=== PATIENT | female | born 1935 | race Caucasian/White ===

== ENCOUNTER 2017-04-05 16:29 | Emergency (ER) | payer MEDICARE ==
[2017-04-05 17:03] LABS: #Eosinphils 0.2 thou/uL (0.0-0.7); #Lymphocytes 0.7 thou/uL (1.20-3.40); #Monocytes 0.3 thou/uL (0.11-0.59); %Eosinophils 4.3 % (0.0-10.0); %Lymphocytes 14.4 % (21.0-51.0); %Monocytes 4.9 % (0.0-10.0); %Neutrophils 76.5 % (42.0-75.0); Mean Corpuscular HGB CONC 33.6 g/dL (32.0-36.0); Mean Corpuscular Hemoglobin 29.7 pg (27.0-31.0); Mean Corpuscular Volume 88.5 fl (81.0-99.0); Mean Platelet Volume 6.9 fL (7.4-10.4); Platelet Count 199 thou/uL (130-400); Red Blood Cell (RBC) Count 4.37 mill/uL (4.20-5.40); White Blood Cell (WBC) Count 5.2 thou/uL (4.8-10.8)
[2017-04-05 17:31] LABS: ALT (SGPT) 13 U/L (8-55); AST (SGOT) 17 U/L (5-34); Albumin 4.2 g/dL (3.4-4.8); Alkaline Phosphatase 57 U/L (40-150); Anion Gap 14 mmol/L (10-20); BUN (Urea Nitrogen) 11 mg/dL (9.8-20.1); Bilirubin, Total 0.5 mg/dL (0.2-1.2); CK (CPK) 26 U/L (29-168); Calc. Creatinine Clearance 0 mL/min (70-130); Calcium 9.5 mg/dL (7.8-10.44); Carbon Dioxide 25 mmol/L (23-31); Chloride 106 mmol/L (98-107); Estimated GFR-MDRD 62; Globulin 2.8 g/dL (2.4-3.5); Glucose 174 mg/dL (83-110); Potassium 4.2 mmol/L (3.5-5.1); Sodium 141 mmol/L (136-145)
[2017-04-05 17:36] LABS: CKMB 0.9 ng/mL (0-6.6); Troponin I Less than 0.010 ng/mL (< 0.028)
[2017-04-05 17:50] LABS: Bilirubin Negative (Negative); Blood, Urine Negative (Negative); Glucose, Urine (Dipstick) Negative (Negative); Leukocyte Negative (Negative); Nitrite Negative (Negative); Protein, Urine (Dipstick) Negative (Neg-Trace); Urobilinogen 0.2 mg/dL (0.2-1.0); pH, Urine 5.5 (5.0-9.0)
[2017-04-05 17:56] LABS: Clarity Clear (Clear); Specific Gravity, Urine 1.016 (1.002-1.036)
--- NOTE | 2017-04-05 18:04 | CT ---
CT HEAD NONCONTRAST: 04/05/17 HISTORY: Altered mental status. Dizziness. FINDINGS: There is no evidence of acute intracranial hemorrhage or infarct. The ventricles appears normal in si ze, shape and position. Mild diffuse cortical atrophy is apparent. There is calcification in the nathalia rial structures. The visualized paranasal sinuses are clear. IMPRESSION: 1. Atherosclerosis. 2. No acute intracranial abnormalities are demonstrated on noncontrast CT head. POS: SHASHA
[2017-04-05] MEDS ORDERED: Lorazepam 2 MG/ML VIAL ONE (19:14)
--- NOTE | 2017-04-05 19:17 | RAD ---
CHEST TWO VIEWS: 04/05/17 HISTORY: Dizziness. Dyspnea. COMPARISON: 12/13/16. FINDINGS: The cardiac silhouette is upper limits of normal. Pulmonary vasculature is unremarkable. Mediastinum is midline with aortic calcification. Minimal atelectasis at each lung base remains but has decreased since the previous exam. There is no lobar consolidation, pneumothorax, or pleural fluid apparent. IMPRESSION: 1. Atherosclerosis. 2. No active cardiopulmonary abnormalities are demonstrated. POS: WALLACE
--- NOTE | 2017-04-05 21:15 | MRI ---
MRI BRAIN NONCONTRAST: 04/05/17 Performed on an emergency basis at 2004 hours. HISTORY: Altered mental status. Dizziness. FINDINGS: There is no evidence of acute intracranial hemorrhage or infarct. Mild chronic ischemic small vessel disease is apparent within the periventricular white matter of each cerebral hemisphere. There is no mass effect or shift of midline structures. Increased T2 signal is present within the inferior most m astoid air cells bilaterally. IMPRESSION: No acute intracranial abnormalities are demonstrated. POS: SHASHA
--- NOTE | 2017-04-09 13:42 | EKG ---
Test Reason : Blood Pressure : / mmHG Vent. Rate : 086 BPM Atrial Rate : 086 BPM P-R Int : 156 ms QRS Dur : 080 ms QT Int : 368 ms P-R-T Axes : 035 -16 052 degrees QTc Int : 440 ms Normal sinus rhythm Inferior infarct , age undetermined Abnormal ECG Confirmed by WANDA MANE M.D. ([id number]), film editor AVEL LASSITER ([id number]) on 04/09/2017 1:41:44 PM Referred By: Confirmed By:WANDA MANE M.D.
== END 2017-04-05 21:18 | disposition home or self-care (01) ==
LOC: ERS 16:29
DX: E86.0 Dehydration (principal); E11.9 Type 2 diabetes mellitus without complications; E78.5 Hyperlipidemia, unspecified; F41.9 Anxiety disorder, unspecified; F32.9 Major depressive disorder, single episode, unspecified; I10 Essential (primary) hypertension
CPT/HCPCS: 36415; 70450; 70551; 71046; 80053; 81003; 82553; 84484; 85025; 87804; 93005; 96361; 96374; J2060

== ENCOUNTER 2018-11-28 15:10 | Outpatient (CLI) | payer MEDICARE ==
--- NOTE | 2018-11-28 15:30 | RAD ---
EXAM: Chest 2 views: HISTORY: Shortness of breath and wheezing COMPARISON: 04/05/2017 FINDINGS: There is a normal-sized cardiomediastinal silhouette. There is no evidence of consolidation, mass, or pleural effusion. Degenerative changes are seen in the spine. IMPRESSION: No evidence of acute cardiopulmonary disease
--- NOTE | 2018-11-28 16:01 | MMO ---
Bilateral MAMMO Bilat Screen [facility]. CLINICAL HISTORY: Patient is 83 years old and is seen for screening. The patient has no family history of breast cancer. The patient has no personal history of cancer. The patient has a history of right Excisional Biopsy in 1971 - benign. VIEWS: The views performed were: bilateral craniocaudal with tomosynthesis and bilateral mediolateral oblique with tomosynthesis. FILMS COMPARED: The present examination has been compared to prior imaging studies performed at [facility] on 11/04/2011, 01/01/2014, 02/12/2015 and 11/25/2016. This study has been interpreted with the assistance of computer-aided detection. MAMMOGRAM FINDINGS: There are scattered fibroglandular densities. There are stable benign appearing calcifications seen in both breasts. There are also vascular calcifications. There are no suspicious masses, suspicious calcifications, or new areas of architectural distortion. IMPRESSION: THERE IS NO MAMMOGRAPHIC EVIDENCE OF MALIGNANCY. A ROUTINE FOLLOW-UP MAMMOGRAM IN 1 YEAR IS RECOMMENDED. THE RESULTS OF THIS EXAM WERE SENT TO THE PATIENT. ACR BI-RADS Category 2 - Benign finding MAMMOGRAPHY NOTE: 1. A negative mammogram report should not delay a biopsy if a dominant of clinically suspicious mass is present. 2. Approximately 10% to 15% of breast cancers are not detected by mammography. 3. Adenosis and dense breasts may obscure an underlying neoplasm. Reported by: GABO BRODERICK MD Electonically Signed: [id number]
== END 2018-11-28 15:11 | disposition home or self-care (01) ==
LOC: BICMAMMO 15:10
PROVIDERS: ATTEND Internal Medicine
DX: Z12.31 Encounter for screening mammogram for malignant neoplasm of breast (principal); J44.9 Chronic obstructive pulmonary disease, unspecified; R06.02 Shortness of breath; Z91.89 Other specified personal risk factors, not elsewhere classified
CPT/HCPCS: 71046; 77063; 77067

== ENCOUNTER 2020-01-17 13:05 | Emergency (ER) | payer MEDICARE ==
[~2020-01-17 13:05] MED LIST: Iopamidol-370 76% 500 ML 1 ML ONE
--- NOTE | 2020-01-17 13:52 | RAD ---
Chest AP view INDICATION: History of generalized body aches, malaise, nausea vomiting and fever COMPARISON: November 28, 2018 chest radiograph FINDINGS: Lungs: Hyperexpanded but clear Cardiac silhouette: Mild cardiomegaly. There are mitral annular calcifications again seen. There are vascular consultation of the aortic arch appear Pulmonary vasculature: Normal Pleural spaces: No pleural effusion or pneumothorax is demonstrated. Upper abdomen: No abnormality seen. Osseous structures: No acute osseous abnormality. Additional findings: None. IMPRESSION: No acute cardiopulmonary abnormality.
[2020-01-17 14:18] LABS: #Lymphocytes 0.3 thou/uL (1.20-3.40); #Monocytes 0.4 thou/uL (0.11-0.59); #Neutrophils 6.1 thou/uL (1.40-6.50); %Basophils 0.1 % (0.0-1.0); %Eosinophils 0.4 % (0.0-10.0); %Lymphocytes 3.9 % (21.0-51.0); %Monocytes 5.3 % (0.0-10.0); %Neutrophils 90.3 % (42.0-75.0); Hemoglobin 9.7 g/dL (12.0-16.0); Mean Corpuscular HGB CONC 32.2 g/dL (32.0-36.0); Mean Corpuscular Hemoglobin 26.7 pg (27.0-31.0); Mean Corpuscular Volume 82.8 fL (78.0-98.0); Platelet Count 154 thou/uL (130-400); RBC Distribution Width 14.3 % (11.5-14.5); Red Blood Cell (RBC) Count 3.62 mill/uL (4.20-5.40); White Blood Cell (WBC) Count 6.8 thou/uL (4.8-10.8)
[2020-01-17 14:43] LABS: ALT (SGPT) 16 U/L (8-55); AST (SGOT) 15 U/L (5-34); Albumin 3.5 g/dL (3.4-4.8); Alkaline Phosphatase 55 U/L (40-110); Anion Gap 15 mmol/L (10-20); BUN (Urea Nitrogen) 12 mg/dL (9.8-20.1); Bilirubin, Total 0.5 mg/dL (0.2-1.2); CK (CPK) 18 U/L (29-168); Calc. Creatinine Clearance 0 mL/min (70-130); Calcium 7.9 mg/dL (7.8-10.44); Carbon Dioxide 24 mmol/L (23-31); Chloride 106 mmol/L (98-107); Globulin 2.4 g/dL (2.4-3.5); Glucose 162 mg/dL (83-110); Lipase 43 U/L (8-78); Potassium 3.6 mmol/L (3.5-5.1); Protein, Total 5.9 g/dL (6.0-8.3); Sodium 141 mmol/L (136-145)
[2020-01-17 14:56] LABS: Bilirubin Negative (Negative); Blood, Urine Negative (Negative); Clarity Clear (Clear); Glucose, Urine (Dipstick) Normal (Negative); Ketone, Urine Negative (Negative); Leukocyte Negative Leu/uL (Negative); Nitrite Negative (Negative); Protein, Urine (Dipstick) Negative (Neg-Trace); Specific Gravity, Urine 1.021 (1.002-1.036); Urobilinogen Normal mg/dL (Less than 2); pH, Urine 7.5 (5.0-9.0)
[2020-01-17] MEDS ORDERED: Cefepime 2 GM in Sodium Chloride 0.9% 100 ML IVPB SCH (15:00)
[2020-01-17] MEDS ORDERED: Azithromycin 500 MG VIAL ONE (15:04)
--- NOTE | 2020-01-17 15:30 | CT ---
CT abdomen and pelvis with IV contrast HISTORY: Body aches. Nausea vomiting fever. FINDINGS: The lung bases are clear. Solid organs are intact. Gallbladder not visible, possibly surgically absent. Appendix not visualized. No evidence of bowel obstruction or inflammation. There is prominent calcification throughout the arterial structures, including at the ostia of the vi sceral arteries. No free air or free fluid. Urinary bladder is unremarkable. Degenerative changes throughout the lumbar spine. IMPRESSION : Atherosclerosis and other chronic-type findings. No acute abnormalities are demonstrated.
[2020-01-17 16:44] LABS: SARS-CoV-2 NAA Rapid Test Not Detected (NotDetected)
== END 2020-01-17 17:23 | disposition home or self-care (01) ==
LOC: ERS 13:05
DX: R50.9 Fever, unspecified (principal); R11.2 Nausea with vomiting, unspecified; Z20.828 Contact with and (suspected) exposure to other viral communicable diseases; E11.9 Type 2 diabetes mellitus without complications; E78.5 Hyperlipidemia, unspecified; E78.00 Pure hypercholesterolemia, unspecified; I10 Essential (primary) hypertension; Z79.84 Long term (current) use of oral hypoglycemic drugs; Z79.899 Other long term (current) drug therapy
CPT/HCPCS: 0240U; 71045; 74177; 80053; 81003; 82550; 83605; 83690; 84484; 85025; 87040; 87086; 93005; 94760; 36415; 51701; 96365; 96367; J0456; J0692; J3490; Q9967

== ENCOUNTER 2023-06-14 18:07 | Emergency (ER) | payer OTHER ==
[2023-06-14 19:20] LABS: #Basophils Less than 0.03 10x3/uL (0.0-0.2); %Eosinophils 2.5 % (0.0-10.0); %Lymphocytes 11.6 % (21.0-51.0); %Monocytes 5.8 % (0.0-10.0); %Neutrophils 79.8 % (42.0-75.0); Hematocrit 34.7 % (36.0-47.0); Hemoglobin 10.4 g/dL (12.0-16.0); Mean Corpuscular Hemoglobin 25.9 pg (27.0-31.0); Mean Corpuscular Volume 86.3 fL (78.0-98.0); Mean Platelet Volume 9.9 fL (7.4-10.4); Platelet Count 187 10x3/uL (130-400); RBC Distribution Width 15.9 % (11.5-14.5); Red Blood Cell (RBC) Count 4.02 mill/uL (4.20-5.40)
[2023-06-14 19:51] LABS: ALT (SGPT) 11 U/L (8-55); AST (SGOT) 17 U/L (5-34); Albumin 3.8 g/dL (3.4-4.8); Alkaline Phosphatase 57 U/L (40-110); Anion Gap 15 mmol/L (10-20); BUN (Urea Nitrogen) 11 mg/dL (9.8-20.1); Bilirubin, Total 0.4 mg/dL (0.2-1.2); Calc. Creatinine Clearance 0 mL/min (70-130); Calcium 9.6 mg/dL (7.8-10.44); Carbon Dioxide 25 mmol/L (23-31); Chloride 105 mmol/L (98-107); Estimated GFR 68; Glucose 98 mg/dL (83-110); Potassium 3.9 mmol/L (3.5-5.1); Protein, Total 6.8 g/dL (5.8-8.1); Sodium 141 mmol/L (136-145)
[2023-06-14 22:11] LABS: Bacteria/HPF None Seen HPF (None Seen); Bilirubin Negative (Negative); Blood, Urine Negative (Negative); CAUTI Indications for Culture Dysuria,urgency,freq; Clarity Clear (Clear); Glucose, Urine (Dipstick) Normal (Negative); Ketone, Urine Negative (Negative); Leukocyte Negative Leu/uL (Negative); Nitrite Negative (Negative); Protein, Urine (Dipstick) Negative (Neg-Trace); RBC/HPF 0-3 HPF (0-3); Squamous Epithelial 0-3 HPF (0-3); Urobilinogen Normal mg/dL (Less than 2); WBC/HPF 0-3 HPF (0-3)
[2023-06-14 22:15] LABS: Urine Culture Reflex No No
== END 2023-06-14 23:38 | disposition home or self-care (01) ==
LOC: ERS 18:07
DX: B02.9 Zoster without complications (principal); I10 Essential (primary) hypertension; E11.9 Type 2 diabetes mellitus without complications
CPT/HCPCS: 36415; 80053; 81001; 85025; 99283

== ENCOUNTER 2023-11-15 10:28 | Outpatient (CLI) | payer OTHER | END 2023-11-15 10:29 | disposition home or self-care (01) | LOC: MRI 10:28 | PROVIDERS: ATTEND Internal Medicine | DX: M47.22 Other spondylosis with radiculopathy, cervical region (principal); M48.02 Spinal stenosis, cervical region | CPT/HCPCS: 72141 ==

== ENCOUNTER 2024-04-02 12:18 | Outpatient (CLI) | payer OTHER | END 2024-04-02 12:19 | disposition home or self-care (01) | LOC: BICMRI 12:18 | PROVIDERS: ATTEND Orthopaedic Surgery | DX: M54.12 Radiculopathy, cervical region (principal); M54.2 Cervicalgia; G37.89 Other specified demyelinating diseases of central nervous system | CPT/HCPCS: 72141 ==

== ENCOUNTER 2025-01-01 10:38 | Emergency (ER) | payer OTHER ==
[2025-01-01 12:12] LABS: Bacteria/HPF None Seen HPF (None Seen); CAUTI Indications for Culture Alt mental st,lethar; Glucose, Urine (Dipstick) Normal (Negative); Leukocyte 250 Leu/uL (Negative); Protein, Urine (Dipstick) Negative (Neg-Trace); RBC/HPF 0-3 HPF (0-3); Specific Gravity, Urine 1.017 (1.002-1.036)
[2025-01-01 12:14] LABS: Urine Culture Reflex No No
[2025-01-02 00:06] LABS: Chlamydia by PCR, Vaginal Swab Not Detected (NotDetected); GC by PCR, Vaginal Swab Not Detected (NotDetected)
== END 2025-01-01 13:13 | disposition home or self-care (01) ==
LOC: ERS 10:38
DX: L98.9 Disorder of the skin and subcutaneous tissue, unspecified (principal); E11.9 Type 2 diabetes mellitus without complications; E78.00 Pure hypercholesterolemia, unspecified; I10 Essential (primary) hypertension; Z79.899 Other long term (current) drug therapy; Z79.84 Long term (current) use of oral hypoglycemic drugs; Z87.891 Personal history of nicotine dependence
CPT/HCPCS: 81001; 87480; 87491; 87510; 87591; 87660; 99283